=== PATIENT | female | born 1975 | race Caucasian/White ===

== ENCOUNTER 2022-11-14 11:19 | Emergency (ER) | payer OTHER ==
[~2022-11-14] VITALS: Ht 162.6 cm; Wt 56.7 kg
[~2022-11-14 11:19] MED LIST: ACET-868 PO; BUPR150T5 PO; CYAN500T9 PO; DIAZ5TAB4 PO; DICY20TA32 PO; GABA800T11 PO; IBUP-2715 PO; SUCR1TAB PO; TRAZ-257 PO; VENL150C2 PO
[2022-11-14] MEDS ORDERED: LIDOCAINE 5% (PATCH) 1 EA PATCH TP ONE (12:28)
[2022-11-14] MEDS ORDERED: CYCLOBENZAPRINE 10 MG TABLET ONE (12:29)
[2022-11-14] MEDS ORDERED: ACETAMINOPHEN ES 500 MG TABLET ONE (12:29)
[2022-11-14] MEDS ORDERED: KETOROLAC TROMETHAMINE INJ 30 MG/ML VIAL ONE (12:29)
[2022-11-14] MEDS ORDERED: KETOROLAC TROMETHAMINE INJ 30 MG/ML VIAL IM ONE (12:30)
[2022-11-14] MEDS ORDERED: ACETAMINOPHEN ES 500 MG TABLET PO ONE (12:30)
[2022-11-14] MEDS ORDERED: CYCLOBENZAPRINE 10 MG TABLET PO ONE (12:30)
[2022-11-14] MEDS ORDERED: LIDOCAINE 5% (PATCH) 1 EA PATCH TP SCH (12:30)
[2022-11-14] MEDS ORDERED: dexaMETHasone SOD PHOSPHATE 4 MG/ML VIAL IM ONE (14:00)
[2022-11-14] MEDS ORDERED: ONDANSETRON 4 MG TAB.RAPDIS SL ONE (14:00)
[2022-11-14] MEDS ORDERED: ONDANSETRON 4 MG TAB.RAPDIS ONE (14:20)
[2022-11-14] MEDS ORDERED: dexaMETHasone SOD PHOSPHATE 10 MG/ML VIAL ONE (14:21)
[2022-11-14] MEDS ORDERED: HYDROCODONE/APAP 5/325MG TABLET PO ONE (15:30)
[2022-11-14] MEDS ORDERED: HYDROCODONE/APAP 5/325MG TABLET ONE (15:44)
[2022-11-14] MEDS ORDERED: CYCL5TAB PO (16:18)
[2022-11-14] MEDS ORDERED: NAPR-1009 PO (16:18)
[2022-11-14 16:51] VITALS: BP 126/56; TEMP 97.8; O2SAT 98
== END 2022-11-14 17:49 | disposition home or self-care (01) ==
LOC: ER 11:43
DX: M54.50 Low back pain, unspecified (principal); M62.830 Muscle spasm of back; Z90.49 Acquired absence of other specified parts of digestive tract; Z88.0 Allergy status to penicillin; Z88.2 Allergy status to sulfonamides; Z79.899 Other long term (current) drug therapy
CPT/HCPCS: 99284; 96374; 96372; J1100; J1885; Q0162

== ENCOUNTER 2023-11-19 09:31 | Emergency (ER) | payer OTHER ==
[~2023-11-19] VITALS: Ht 162.6 cm; Wt 54.0 kg
[~2023-11-19 09:31] MED LIST changes: +CYCL5TAB PO
[2023-11-19] MEDS: IV NS 0.9% 1,000 ML BAG IV ONE (10:00)
[2023-11-19 10:36] LABS: BASOPHILS # (AUTO) 0.1 K/uL (0.0-0.2); BASOPHILS % (AUTO) 0.4 % (0.0-2.0); HEMATOCRIT 40 % (33-45); HEMOGLOBIN 13.1 g/dL (11.5-14.8); LYMPHOCYTES # (AUTO) 0.6 K/uL (0.8-4.8); MEAN CORPUSCULAR HEMOGLOBIN 32 PG (26.0-33.0); MEAN CORPUSCULAR HGB CONC 33 g/dl (31.0-36.0); MEAN CORPUSCULAR VOLUME 96 fL (82-100); MONOCYTES # (AUTO) 0.6 K/uL (0.1-1.30); MONOCYTES % (AUTO) 4.6 % (2.0-12.0); NEUTROPHILS # (AUTO) 12.6 K/uL (1.8-8.9); PLATELET COUNT (AUTO) 271 K/uL (150-450); RED BLOOD CELL COUNT(AUTO) 4.17 MIL/uL (4.0-5.2); RED CELL DISTRIBUTION WIDTH 13.9 % (11.5-15.0); WHITE BLOOD COUNT (AUTO) 13.8 K/uL (4.3-11.0)
[2023-11-19 10:47] LABS: CALCIUM, SERUM 9.5 mg/dL (8.5-10.1); CREATININE 0.8 mg/dL (0.6-1.3); POTASSIUM 4.9 mmol/L (3.5-5.1)
[2023-11-19] MEDS: LEVETIRACETAM (500MG) 750 MG in IV NS 0.9% 100 ML IV STA (11:04)
[2023-11-19 13:04] VITALS: BP 150/90; TEMP 98.4; O2SAT 99
== END 2023-11-19 18:01 | disposition short-term general hospital (02) ==
LOC: ER 09:39
DX: G40.909 Epilepsy, unspecified, not intractable, without status epilepticus (principal); G93.40 Encephalopathy, unspecified; R41.0 Disorientation, unspecified; Z86.73 Personal history of transient ischemic attack (TIA), and cerebral infarction without residual deficits; Z87.19 Personal history of other diseases of the digestive system; Z86.59 Personal history of other mental and behavioral disorders; Z90.49 Acquired absence of other specified parts of digestive tract; Z88.0 Allergy status to penicillin; Z88.2 Allergy status to sulfonamides
CPT/HCPCS: 99285; 96365; 96361; 93005; 70450; 85025; 80048; 36415; 80320; J7030 ×2; A4223 ×2; J1953; G0480

== ENCOUNTER 2023-11-28 15:10 | Emergency (ER) | payer OTHER ==
[~2023-11-28] VITALS: Ht 162.6 cm; Wt 54.4 kg
--- NOTE | 2023-11-28 15:19 | NUR ---
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
[2023-11-28 16:31] LABS: BASOPHILS % (AUTO) 0.7 % (0.0-2.0); EOSINOPHILS # (AUTO) 0.1 K/uL (0.0-0.7); EOSINOPHILS % (AUTO) 0.9 % (0.0-6.0); HEMATOCRIT 39 % (33-45); HEMOGLOBIN 13.2 g/dL (11.5-14.8); LYMPHOCYTES # (AUTO) 0.8 K/uL (0.8-4.8); LYMPHOCYTES % (AUTO) 12.6 % (20.0-44.0); MEAN CORPUSCULAR HEMOGLOBIN 33 PG (26.0-33.0); MEAN CORPUSCULAR HGB CONC 34 g/dl (31.0-36.0); MEAN CORPUSCULAR VOLUME 98 fL (82-100); MONOCYTES # (AUTO) 0.6 K/uL (0.1-1.30); MONOCYTES % (AUTO) 9.7 % (2.0-12.0); NEUTROPHILS # (AUTO) 4.8 K/uL (1.8-8.9); NEUTROPHILS % (AUTO) 76.1 % (43.0-81.0); PLATELET COUNT (AUTO) 308 K/uL (150-450); RED CELL DISTRIBUTION WIDTH 14.5 % (11.5-15.0); WHITE BLOOD COUNT (AUTO) 6.2 K/uL (4.3-11.0)
[2023-11-28] MEDS ORDERED: MORPHINE SULFATE INJ 4 MG/ML DISP.SYRIN ONE (16:36)
[2023-11-28] MEDS ORDERED: ONDANSETRON HCL/PF 4 MG/2 ML VIAL ONE (16:36)
[2023-11-28] MEDS ORDERED: ACETAMINOPHEN ES 500 MG TABLET ONE (16:36)
[2023-11-28] MEDS: ONDANSETRON HCL/PF 4 MG/2 ML VIAL IVP ONE (16:40)
[2023-11-28] MEDS: IV NS 0.9% 1,000 ML BAG IV ONE (16:40)
[2023-11-28] MEDS: MORPHINE SULFATE INJ 2 MG/ML DISP.SYRIN IV ONE (16:40)
[2023-11-28 16:42] LABS: CALCIUM, SERUM 10.2 mg/dL (8.5-10.1); CREATININE 1.1 mg/dL (0.6-1.3); POTASSIUM 4.8 mmol/L (3.5-5.1)
[2023-11-28] MEDS: ACETAMINOPHEN ES 500 MG TABLET PO ONE (16:45)
[2023-11-28 16:48] LABS: BILIRUBIN,DIRECT 0.1 mg/dL (0.0-0.2); BILIRUBIN,TOTAL 0.5 mg/dL (0.2-1.0); TOTAL PROTEIN, SERUM 7.4 g/dL (6.4-8.2)
[2023-11-28 16:51] LABS: LACTIC ACID 1.7 mmol/L (0.4-2.0)
[2023-11-28 16:54] LABS: ALBUMIN 4.1 g/dL (3.4-5.0)
[2023-11-28] MEDS: CYCLOBENZAPRINE 10 MG TABLET PO ONE (18:08)
[2023-11-28] MEDS: KETOROLAC TROMETHAMINE 15 MG/ML VIAL IV ONE (18:08)
--- NOTE | 2023-11-28 18:50 | NUR ---
urine collected and sent
[2023-11-28 19:37] LABS: APPEARANCE,URINE CLEAR (CLEAR); BILIRUBIN,URINE NEGATIVE (NEGATIVE); BLOOD, URINE NEGATIVE Ery/uL (NEGATIVE); COLOR,URINE YELLOW (YELLOW); KETONES,URINE NEGATIVE (NEGATIVE); LEUKOCYTE ESTERASE ,URINE 2+ (NEGATIVE); NITRITE, URINE NEGATIVE (NEGATIVE); PROTEIN,URINE NEGATIVE (NEGATIVE); UGLUCOSE NEGATIVE (NEGATIVE)
[2023-11-28 19:38] LABS: PREGNANCY TEST URINE QUAL NEGATIVE (NEGATIVE)
[2023-11-28 19:53] LABS: ADD URINE CULTURE YES; BACTERIA,URINE 1+ /HPF (None Seen); COARSE GRANULAR CASTS,URINE Few /LPF (None Seen); RBC,URINE 0-2 /HPF (0-2); SQUAMOUS EPITHELIAL CELL,UR Few /HPF (None Seen)
[2023-11-28] MEDS ORDERED: CIPR-262 PO (20:03)
[2023-11-28] MEDS ORDERED: METH-649 PO (20:03)
[2023-11-28] MEDS ORDERED: IBUP-1490 PO (20:03)
[2023-11-28] MEDS ORDERED: CEFTRIAXONE 1GM BAG (ER ONLY) 50 ML IV ONE (20:07)
[2023-11-28] MEDS: CEFTRIAXONE 1GM BAG (ER ONLY) 1 GM/50 ML PIGGYBACK IV ONE (20:08)
[2023-11-28 20:29] VITALS: BP 134/82; TEMP 98; O2SAT 98
--- NOTE | 2023-11-28 20:29 | NUR ---
Patient discharged to home in stable condition. Written and verbal after care instructions given. Patient verbalizes understanding of instruction.IV removed. Catheter intact and site benign. Pressure and 4x4 applied to site. No bleeding noted.
== END 2023-11-28 20:30 | disposition home or self-care (01) ==
LOC: ER 15:13
DX: N39.0 Urinary tract infection, site not specified (principal); G89.29 Other chronic pain; M54.59 Other low back pain; R00.0 Tachycardia, unspecified; R30.0 Dysuria; G40.909 Epilepsy, unspecified, not intractable, without status epilepticus; Z86.73 Personal history of transient ischemic attack (TIA), and cerebral infarction without residual deficits; Z87.19 Personal history of other diseases of the digestive system; Z90.49 Acquired absence of other specified parts of digestive tract; Z88.0 Allergy status to penicillin; Z88.2 Allergy status to sulfonamides
CPT/HCPCS: 99285; 96365; 96375; 71045; 96361; 93005; 85025; 80048; 87040; 87086; 83605; 80076; 84703; 81001; 36415; J2270; J2405; J7030; J7040; J0696; J1885

== ENCOUNTER 2024-04-27 16:03 | Inpatient (IN) | payer OTHER ==
[~2024-04-27] VITALS: Ht 162.6 cm; Wt 56.2 kg
[~2024-04-27 16:03] MED LIST changes: +CIPR-262 PO; +IBUP-1490 PO; +METH-649 PO
[2024-04-27] MEDS ORDERED: LORAZEPAM INJ 2 MG/ML VIAL ONE (16:09)
[2024-04-27] MEDS: LORAZEPAM INJ 2 MG/ML VIAL IVP ONE (16:11)
[2024-04-27 16:26] LABS: BASOPHILS % (AUTO) 0.5 % (0.0-2.0); EOSINOPHILS % (AUTO) 0.3 % (0.0-6.0); HEMATOCRIT 37 % (33-45); HEMOGLOBIN 12.7 g/dL (11.5-14.8); LYMPHOCYTES # (AUTO) 1.5 K/uL (0.8-4.8); MEAN CORPUSCULAR HEMOGLOBIN 33 PG (26.0-33.0); MEAN CORPUSCULAR HGB CONC 34 g/dl (31.0-36.0); MEAN CORPUSCULAR VOLUME 98 fL (82-100); MONOCYTES # (AUTO) 0.5 K/uL (0.1-1.30); MONOCYTES % (AUTO) 6.7 % (2.0-12.0); NEUTROPHILS # (AUTO) 4.9 K/uL (1.8-8.9); NEUTROPHILS % (AUTO) 71.5 % (43.0-81.0); PLATELET COUNT (AUTO) 210 K/uL (150-450); RED BLOOD CELL COUNT(AUTO) 3.82 MIL/uL (4.0-5.2); RED CELL DISTRIBUTION WIDTH 15.6 % (11.5-15.0); WHITE BLOOD COUNT (AUTO) 6.9 K/uL (4.3-11.0)
[2024-04-27] MEDS: LORAZEPAM INJ 2 MG/ML VIAL IV ONE (16:31)
[2024-04-27] MEDS: LEVETIRACETAM (500MG) 500 MG in IV NS 0.9% 100 ML IV ONE (16:32)
[2024-04-27] MEDS: IV NS 0.9% 1,000 ML BAG IV ONE (16:34)
[2024-04-27 16:41] LABS: CALCIUM, SERUM 8.8 mg/dL (8.5-10.1); CARBON DIOXIDE 22 mmol/L (21-32); CHLORIDE 102 mmol/L (98-107); CREATININE 1.1 mg/dL (0.6-1.3); GLUCOSE 107 mg/dL (74-106); POTASSIUM 3.9 mmol/L (3.5-5.1); SODIUM SERUM 138 mmol/L (136-145); UREA NITROGEN, BLOOD 8 mg/dL (7-18)
[2024-04-27 16:46] LABS: ALANINE AMINOTRANSFERASE 49 U/L (12-78); ALBUMIN 3.9 g/dL (3.4-5.0); ALCOHOL, BLOOD < 3 mg/dL (0-10); ALKALINE PHOSPHATASE 107 U/L (46-116); ASPARTATE AMINOTRANSFERASE 37 U/L (15-37); BILIRUBIN,DIRECT 0.1 mg/dL (0.0-0.2); BILIRUBIN,TOTAL 0.4 mg/dL (0.2-1.0)
[2024-04-27 16:56] LABS: VALPROIC ACID 7 ug/mL (50-100)
[2024-04-27 16:58] LABS: PHENYTOIN (DILANTIN) < 0.5 ug/ml (10.0-20.0)
[2024-04-27 17:14] LABS: INR 0.98 (0.91-1.10); PARTIAL THROMBOPLASTIN TIME 23.2 SEC (24.3-34.3); PROTHROMBIN TIME 10.4 SECS (9.2-11.1)
[2024-04-27 19:26] LABS: AMPHETAMINE, URINE NEGATIVE (NEGATIVE); BARBITURATE, URINE NEGATIVE (NEGATIVE); BENZODIAZEPINE, URINE NEGATIVE (NEGATIVE); COCCAINE, URINE NEGATIVE (NEGATIVE); PHENCYCLIDINE SCREEN,URINE NEGATIVE (NEGATIVE)
[2024-04-27 19:29] LABS: CANNABINOID, URINE POSITIVE (NEGATIVE); OPIATE, URINE POSITIVE (NEGATIVE)
[2024-04-27] MEDS ORDERED: ONDANSETRON HCL/PF 4 MG/2 ML VIAL IVP PRN (20:00)
[2024-04-27] MEDS ORDERED: MAG HYDROX/AL HYDROX/SIMETH 30 ML UDC PO PRN (20:00)
[2024-04-27] MEDS ORDERED: MAGNESIUM HYDROXIDE 30 ML UDC PO PRN (20:00)
[2024-04-27] MEDS ORDERED: Z GUARD REMEDY 4 OZ OINT TP PRN (20:00)
[2024-04-27] MEDS ORDERED: METHOCARBAMOL (750MG) 750 MG TABLET PO PRN (20:00)
[2024-04-27 20:06] VITALS: BP 133/97; TEMP 99; O2SAT 98
[2024-04-27] MEDS ORDERED: CYCLOBENZAPRINE 10 MG TABLET PO PRN (20:30)
[2024-04-27] MEDS ORDERED: LORAZEPAM INJ 2 MG/ML VIAL IV PRN (20:30)
[2024-04-27] MEDS: LEVETIRACETAM (500MG) 500 MG in IV NS 0.9% 100 ML IV SCH (21:03)
[2024-04-27] MEDS: VENLAFAXINE XR 150 MG CAP.SR.24H PO SCH (21:28)
[2024-04-27] MEDS: DICYCLOMINE HCL 10 MG CAPSULE PO SCH (21:28)
[2024-04-27] MEDS: ACETAMINOPHEN 325 MG TABLET PO PRN (21:29)
[2024-04-27 22:00] VITALS: BP 133/92; TEMP 99
[2024-04-28] VITALS: BP 153/88; TEMP 98.1; O2SAT 97
[2024-04-28] MEDS: HYDROCODONE/APAP 10/325MG TABLET PO PRN (00:02)
[2024-04-28 04:00] VITALS: BP 148/76; TEMP 97.5; O2SAT 96
[2024-04-28 07:30] VITALS: BP 161/97; TEMP 97.6; O2SAT 98
[2024-04-28 07:53] LABS: BASOPHILS % (AUTO) 0.5 % (0.0-2.0); EOSINOPHILS % (AUTO) 0.6 % (0.0-6.0); HEMATOCRIT 36 % (33-45); HEMOGLOBIN 12.2 g/dL (11.5-14.8); LYMPHOCYTES # (AUTO) 0.8 K/uL (0.8-4.8); LYMPHOCYTES % (AUTO) 14.3 % (20.0-44.0); MEAN CORPUSCULAR HEMOGLOBIN 33 PG (26.0-33.0); MEAN CORPUSCULAR HGB CONC 34 g/dl (31.0-36.0); MEAN CORPUSCULAR VOLUME 98 fL (82-100); MONOCYTES # (AUTO) 0.4 K/uL (0.1-1.30); MONOCYTES % (AUTO) 7.4 % (2.0-12.0); NEUTROPHILS # (AUTO) 4.2 K/uL (1.8-8.9); NEUTROPHILS % (AUTO) 77.2 % (43.0-81.0); PLATELET COUNT (AUTO) 200 K/uL (150-450); RED CELL DISTRIBUTION WIDTH 15.3 % (11.5-15.0); WHITE BLOOD COUNT (AUTO) 5.5 K/uL (4.3-11.0)
[2024-04-28] MEDS ORDERED: GABA600T12 PO (07:57)
[2024-04-28] MEDS ORDERED: LEVE500T20 PO (07:57)
[2024-04-28] MEDS ORDERED: IBUP-1955 PO (07:57)
[2024-04-28] MEDS ORDERED: ONDA-97 PO (07:57)
[2024-04-28] MEDS ORDERED: ACET1TAB25 PO (07:57)
[2024-04-28 08:20] LABS: CALCIUM, SERUM 8.2 mg/dL (8.5-10.1); CREATININE 0.7 mg/dL (0.6-1.3); MAGNESIUM 2.2 mg/dL (1.8-2.4); PHOSPHORUS 3.8 mg/dL (2.5-4.9); POTASSIUM 4.1 mmol/L (3.5-5.1)
[2024-04-28] MEDS: CYANOCOBALAMIN 500 MCG TABLET PO SCH (08:43)
[2024-04-28] MEDS: buPROPion SR 150 MG TABLET.ER PO SCH (08:43)
[2024-04-28] MEDS: GABAPENTIN 400 MG CAPSULE PO SCH (08:43)
[2024-04-28] MEDS: TRAZODONE 50 MG TABLET PO SCH (08:43)
[2024-04-28] MEDS: SUCRALFATE 1 G TABLET PO SCH (08:44)
[2024-04-28] MEDS: AMLODIPINE BESYLATE 5 MG TABLET PO SCH (10:40)
[2024-04-28 16:00] VITALS: BP 146/86; TEMP 98.2; O2SAT 98
[2024-04-28 20:00] VITALS: BP 150/84; TEMP 99.5; O2SAT 96
[2024-04-28 20:47] VITALS: BP 150/84; TEMP 99.5; O2SAT 96
[2024-04-28] MEDS: LEVETIRACETAM (500MG) 1,000 MG in IV NS 0.9% 100 ML IV SCH (21:13)
[2024-04-29] VITALS: BP 138/81; TEMP 98.2; O2SAT 96
[2024-04-29 00:33] VITALS: BP 138/81; TEMP 98.2; O2SAT 96
[2024-04-29 04:00] VITALS: BP 153/87; TEMP 98.2; O2SAT 98
[2024-04-29 04:14] VITALS: BP 153/87; TEMP 98.2; O2SAT 98
[2024-04-29 08:00] VITALS: BP 146/94; TEMP 98.1; O2SAT 97
[2024-04-29 12:00] VITALS: BP 130/72; TEMP 98.6; O2SAT 97
[2024-04-29] MEDS ORDERED: SUCR1TAB31 PO (15:16)
[2024-04-29] MEDS ORDERED: VENL150C58 PO (15:16)
[2024-04-29] MEDS ORDERED: BUPR150T12 PO (15:16)
[2024-04-29] MEDS ORDERED: AMLO-212 PO (15:16)
[2024-04-29] MEDS ORDERED: LEVE1000 PO (15:16)
== END 2024-04-29 17:15 | disposition home or self-care (01) | DRG 53 ==
LOC: ER 16:05 → TELE 19:56 → MED 04-28 14:48 → TELE 04-28 15:57 → MED 04-29 17:05
PROVIDERS: ADMIT Nurse Practitioner Acute Care; ATTEND Internal Medicine
DX: G40.901 Epilepsy, unspecified, not intractable, with status epilepticus (principal); G92.8 Other toxic encephalopathy; F41.9 Anxiety disorder, unspecified; Z86.73 Personal history of transient ischemic attack (TIA), and cerebral infarction without residual deficits; Z87.19 Personal history of other diseases of the digestive system; Z90.49 Acquired absence of other specified parts of digestive tract; Z88.0 Allergy status to penicillin; Z88.2 Allergy status to sulfonamides; Z79.899 Other long term (current) drug therapy; Z71.6 Tobacco abuse counseling; G89.29 Other chronic pain; F17.210 Nicotine dependence, cigarettes, uncomplicated; F32.A Depression, unspecified; G47.9 Sleep disorder, unspecified; F12.90 Cannabis use, unspecified, uncomplicated; Z98.890 Other specified postprocedural states
CPT/HCPCS: 36415; 70450-TC; 71045-TC; 80048-TC; 80076-TC; 80164-TC; 80185-TC; 82962-TC; 83735-TC; 84100-TC; 85025-TC; 85730-TC; A4223; G0378; G0480; J1953; J2060; J7030; J7040; J7060

== ENCOUNTER 2024-05-02 18:25 | Emergency (ER) | payer OTHER ==
[~2024-05-02] VITALS: Ht 162.6 cm; Wt 56.2 kg
[~2024-05-02 18:25] MED LIST changes: -ACET-868 PO; +ACET1TAB25 PO; +AMLO-212 PO; +BUPR150T12 PO; -BUPR150T5 PO; -CIPR-262 PO; -CYAN500T9 PO; -CYCL5TAB PO; -DIAZ5TAB4 PO; -DICY20TA32 PO; +GABA600T12 PO; -GABA800T11 PO; -IBUP-1490 PO; +IBUP-1955 PO; -IBUP-2715 PO; +LEVE1000 PO; -METH-649 PO; +ONDA-97 PO; -SUCR1TAB PO; +SUCR1TAB31 PO; -TRAZ-257 PO; -VENL150C2 PO; +VENL150C58 PO
[2024-05-02 18:37] VITALS: TEMP 98.3
[2024-05-02 19:24] LABS: BASOPHILS % (AUTO) 0.6 % (0.0-2.0); EOSINOPHILS % (AUTO) 0.7 % (0.0-6.0); HEMATOCRIT 39 % (33-45); HEMOGLOBIN 13.6 g/dL (11.5-14.8); LYMPHOCYTES # (AUTO) 0.4 K/uL (0.8-4.8); LYMPHOCYTES % (AUTO) 9.2 % (20.0-44.0); MEAN CORPUSCULAR HEMOGLOBIN 34 PG (26.0-33.0); MEAN CORPUSCULAR HGB CONC 35 g/dl (31.0-36.0); MEAN CORPUSCULAR VOLUME 98 fL (82-100); MONOCYTES # (AUTO) 0.3 K/uL (0.1-1.30); MONOCYTES % (AUTO) 6.9 % (2.0-12.0); NEUTROPHILS # (AUTO) 3.6 K/uL (1.8-8.9); NEUTROPHILS % (AUTO) 82.6 % (43.0-81.0); PLATELET COUNT (AUTO) 247 K/uL (150-450); RED BLOOD CELL COUNT(AUTO) 3.98 MIL/uL (4.0-5.2); RED CELL DISTRIBUTION WIDTH 15.5 % (11.5-15.0); WHITE BLOOD COUNT (AUTO) 4.4 K/uL (4.3-11.0)
[2024-05-02 19:38] LABS: ALCOHOL, BLOOD < 3 mg/dL (0-10); CALCIUM, SERUM 9.6 mg/dL (8.5-10.1); CARBON DIOXIDE 28 mmol/L (21-32); CHLORIDE 100 mmol/L (98-107); CREATININE 1.1 mg/dL (0.6-1.3); GLUCOSE 103 mg/dL (74-106); POTASSIUM 4.5 mmol/L (3.5-5.1); SODIUM SERUM 135 mmol/L (136-145); UREA NITROGEN, BLOOD 8 mg/dL (7-18)
[2024-05-02 19:48] LABS: LACTIC ACID 3.4 mmol/L (0.4-2.0)
[2024-05-02] MEDS: IV NS 0.9% 1,000 ML BAG IV ONE (20:00)
[2024-05-02] MEDS: LEVETIRACETAM (500MG) 1,000 MG in IV NS 0.9% 90 ML IV SCH (20:00)
[2024-05-02] MEDS ORDERED: LEVETIRACETAM (500MG) 500 MG/5 ML VIAL IV ONE (20:15)
[2024-05-02 21:19] LABS: AMPHETAMINE, URINE NEGATIVE (NEGATIVE); BARBITURATE, URINE NEGATIVE (NEGATIVE); BENZODIAZEPINE, URINE NEGATIVE (NEGATIVE); COCCAINE, URINE NEGATIVE (NEGATIVE); PHENCYCLIDINE SCREEN,URINE NEGATIVE (NEGATIVE)
[2024-05-02 21:21] LABS: CANNABINOID, URINE POSITIVE (NEGATIVE); OPIATE, URINE POSITIVE (NEGATIVE)
[2024-05-02 21:59] VITALS: BP 139/89; O2SAT 100
== END 2024-05-02 21:59 | disposition home or self-care (01) ==
LOC: ER 18:37
DX: G40.909 Epilepsy, unspecified, not intractable, without status epilepticus (principal); Z79.899 Other long term (current) drug therapy; Z86.73 Personal history of transient ischemic attack (TIA), and cerebral infarction without residual deficits; Z88.0 Allergy status to penicillin; Z88.2 Allergy status to sulfonamides; Z90.49 Acquired absence of other specified parts of digestive tract
CPT/HCPCS: 99284; 96365; 85025; 80048; 83605; 36415; 80320; 80307; J7030 ×3; J1953 ×2; G0480

== ENCOUNTER 2025-02-23 13:31 | Emergency (ER) | payer OTHER ==
[~2025-02-23] VITALS: Ht 162.6 cm; Wt 56.7 kg
[2025-02-23 13:39] VITALS: TEMP 98
[2025-02-23] MEDS ORDERED: MORPHINE SULFATE INJ 4 MG/ML DISP.SYRIN ONE (14:26)
[2025-02-23 14:31] LABS: PLATELET COUNT (AUTO) 423 K/uL (150-450); RED BLOOD CELL COUNT(AUTO) 3.38 MIL/uL (4.0-5.2); RED CELL DISTRIBUTION WIDTH 16.9 % (11.5-15.0); WHITE BLOOD COUNT (AUTO) 5.7 K/uL (4.3-11.0)
[2025-02-23] MEDS ORDERED: ONDANSETRON HCL/PF 4 MG/2 ML VIAL ONE (14:31)
[2025-02-23 14:37] LABS: CALCIUM, SERUM 8.5 mg/dL (8.5-10.1); CREATININE 0.9 mg/dL (0.6-1.3); SODIUM SERUM 137 mmol/L (136-145); UREA NITROGEN, BLOOD 11 mg/dL (7-18)
[2025-02-23] MEDS: ONDANSETRON HCL/PF 4 MG/2 ML VIAL IV ONE (14:40)
[2025-02-23] MEDS: MORPHINE SULFATE INJ 4 MG/ML DISP.SYRIN IV ONE (14:40)
[2025-02-23 14:42] LABS: ASPARTATE AMINOTRANSFERASE 21 U/L (15-37); TOTAL PROTEIN, SERUM 6.6 g/dL (6.4-8.2)
[2025-02-23 14:47] LABS: INR 0.85 (0.91-1.10)
[2025-02-23] MEDS: LEVETIRACETAM (500MG) 1,000 MG in IV NS 0.9% 90 ML IV SCH (14:50)
[2025-02-23 15:00] LABS: PHENOBARBITAL 0 ug/ml (15-39); VALPROIC ACID < 3 ug/mL (50-100)
[2025-02-23 15:04] LABS: ALCOHOL, BLOOD < 3 mg/dL (0-10)
[2025-02-23] MEDS: LACOSAMIDE 50 MG in IV NS 0.9% 50 ML IV SCH (15:25)
[2025-02-23] MEDS ORDERED: METOCLOPRAMIDE HCL 10 MG/2 ML VIAL ONE (16:36)
[2025-02-23] MEDS ORDERED: KETOROLAC TROMETHAMINE 15 MG/ML VIAL ONE (16:36)
[2025-02-23] MEDS: IV NS 0.9% 1,000 ML BAG IV ONE (16:45)
[2025-02-23] MEDS: KETOROLAC TROMETHAMINE 15 MG/ML VIAL IV ONE (16:45)
[2025-02-23] MEDS: METOCLOPRAMIDE HCL 10 MG/2 ML VIAL IV ONE (16:45)
[2025-02-23] MEDS ORDERED: METO-295 PO (17:20)
[2025-02-23] MEDS ORDERED: KETO10TA2 PO (17:20)
[2025-02-23 17:33] VITALS: BP 149/88; O2SAT 99
[2025-02-23 17:47] LABS: AMPHETAMINE, URINE NEGATIVE (NEGATIVE); BARBITURATE, URINE NEGATIVE (NEGATIVE); BENZODIAZEPINE, URINE NEGATIVE (NEGATIVE); CANNABINOID, URINE POSITIVE (NEGATIVE); COCCAINE, URINE NEGATIVE (NEGATIVE); OPIATE, URINE POSITIVE (NEGATIVE)
== END 2025-02-23 17:39 | disposition home or self-care (01) ==
LOC: ER 13:35
DX: G40.909 Epilepsy, unspecified, not intractable, without status epilepticus (principal); R51.9 Headache, unspecified; E86.0 Dehydration; Z79.891 Long term (current) use of opiate analgesic; Z79.899 Other long term (current) drug therapy; Z86.73 Personal history of transient ischemic attack (TIA), and cerebral infarction without residual deficits; Z88.0 Allergy status to penicillin; Z88.2 Allergy status to sulfonamides; Z90.49 Acquired absence of other specified parts of digestive tract
CPT/HCPCS: 99285; 96365; 96361; 96367; 96375; 93005; 71045; 70450; 85025; 80048; 80185; 80076; 80184; 36415; 80164; 85730; 82962; 80320; 80307; J2270; J2765; J2405; J7030; J1953; J1885; G0480

== ENCOUNTER 2025-03-08 14:10 | Emergency (ER) | payer OTHER ==
[~2025-03-08] VITALS: Ht 162.6 cm; Wt 56.7 kg
[~2025-03-08 14:10] MED LIST changes: +KETO10TA2 PO; +METO-295 PO
[2025-03-08 14:38] VITALS: TEMP 98.4
[2025-03-08] MEDS: ONDANSETRON HCL/PF 4 MG/2 ML VIAL IVP ONE (15:50)
[2025-03-08] MEDS ORDERED: ONDANSETRON HCL/PF 4 MG/2 ML VIAL ONE (15:52)
[2025-03-08] MEDS: IV NS 0.9% 1,000 ML BAG IV ONE (15:55)
[2025-03-08] MEDS: LEVETIRACETAM (500MG) 1,000 MG in IV NS 0.9% 90 ML IV SCH (16:00)
[2025-03-08 16:09] LABS: PLATELET COUNT (AUTO) 263 K/uL (150-450); RED BLOOD CELL COUNT(AUTO) 3.47 MIL/uL (4.0-5.2); RED CELL DISTRIBUTION WIDTH 17.1 % (11.5-15.0); WHITE BLOOD COUNT (AUTO) 4.6 K/uL (4.3-11.0)
[2025-03-08 16:16] LABS: CALCIUM, SERUM 8.5 mg/dL (8.5-10.1); CREATININE 0.6 mg/dL (0.6-1.3); SODIUM SERUM 130 mmol/L (136-145); UREA NITROGEN, BLOOD 8 mg/dL (7-18)
[2025-03-08 16:21] LABS: AMPHETAMINE, URINE NEGATIVE (NEGATIVE); BARBITURATE, URINE NEGATIVE (NEGATIVE); BENZODIAZEPINE, URINE NEGATIVE (NEGATIVE); COCCAINE, URINE NEGATIVE (NEGATIVE)
[2025-03-08 16:22] LABS: CANNABINOID, URINE POSITIVE (NEGATIVE); OPIATE, URINE POSITIVE (NEGATIVE)
[2025-03-08 16:22] LABS: ALCOHOL, BLOOD < 3 mg/dL (0-10); ASPARTATE AMINOTRANSFERASE 20 U/L (15-37); TOTAL PROTEIN, SERUM 6.8 g/dL (6.4-8.2)
[2025-03-08] MEDS ORDERED: ONDA4TAB5 PO (16:42)
[2025-03-08 17:48] VITALS: BP 154/88; O2SAT 98
== END 2025-03-08 17:28 | disposition home or self-care (01) ==
LOC: ER 14:16
DX: R56.9 Unspecified convulsions (principal); R11.2 Nausea with vomiting, unspecified; Z79.891 Long term (current) use of opiate analgesic; Z79.899 Other long term (current) drug therapy; Z88.0 Allergy status to penicillin; Z88.2 Allergy status to sulfonamides; Z90.49 Acquired absence of other specified parts of digestive tract
CPT/HCPCS: 99284; 96365; 96375; 93005; 85025; 80048; 80076; 36415; 80320; 80307; J2405; J7030 ×2; A4223; J1953; G0480